=== PATIENT | female | born 1980 ===

== ENCOUNTER 2016-10-05 18:48 | Inpatient (IN) | payer OTHER ==
[~2016-10-05] VITALS: Ht 162.6 cm; Wt 59.4 kg
[2016-10-06] MEDS ORDERED: Alum-Mag Hydrox-Simeth 30 mL Suspension PO PRN (09:40)
[2016-10-06] MEDS ORDERED: Benzocaine-Menthol Lozenge 2/Pkg PO PRN (09:40)
[2016-10-06] MEDS ORDERED: ARIP400S2 IM (11:13)
[2016-10-06] MEDS ORDERED: DEP500A PO (11:26)
[2016-10-06] MEDS ORDERED: ATOM10CA PO (11:26)
[2016-10-06] MEDS ORDERED: OLAN10TA3 PO (11:26)
[2016-10-06] MEDS ORDERED: LIT300 PO (11:26)
[2016-10-06] MEDS: Trimethoprim-Sulfa 160 mg-800 mg Tablet PO SCH ×2 (11:40→20:30)
[2016-10-06] MEDS ORDERED: ARIPiprazole 10 mg Tablet PO ONE (13:54)
[2016-10-06] MEDS: ARIPiprazole 10 mg Tablet PO SCH (13:55)
--- NOTE | 2016-10-06 15:00 | NUR ---
Nursing Admission Note: Patient arrived on the unit at 0830 escorted by security and EMS. KASANDRA'd on a 72 hour hold in [facility] Monday evening the 04 of October at 2155. Requested to go straight to her room. Answered a few questions and napped for a bit prior to taking a shower and changing into clean clothes. States "I really could use a mental health evaluation." Per patient she has been on a meth run since learning she had her rights as a parent of her 2 children rescinded by the court last March. Ate well at lunch. Noted to be talking to herself at times. Will monitor mood and behavior.
--- NOTE | 2016-10-06 19:22 | NUR ---
Observations 0900 - 0 Pt affect and mood was flat, isolative and mostly keeps to herself. Pt was in her room and in bed most of the shift. Pt was pleasant, polite and cooperative when approached. Pt maintained behavior throughout the shift. Pt speech and eye contact was poor. Pt was offered snack but she declined. Pt did not attend community meeting but declined going to groups and unit activities. Pt was asked if she wanted to go out on patio to get some fresh air but she declined. Pt was offered breakfast and dinner but she refused to come out of her room to eat. Pt attended lunch in D.[facility] and ate approximately 75%. Pt was observed every 15 minutes through the shift as ordered.
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
--- NOTE | 2016-10-07 04:26 | NUR ---
Nursing Noc Pt isolative to room, not willing to get up for snack or evening medications. Noted to be first asleep at 1945 and has remained asleep throughout the night. Continuing to monitor with Q15 minute safety checks as ordered. Monitoring mood behavior and emotional state. CP
[2016-10-07] MEDS: ARIPiprazole 10 mg Tablet PO SCH (08:11)
[2016-10-07] MEDS: Trimethoprim-Sulfa 160 mg-800 mg Tablet PO SCH ×2 (08:12→20:27)
[2016-10-07] MEDS: LORazepam 1 mg Tablet PO PRN ×2 (09:57→15:04)
--- NOTE | 2016-10-07 13:13 | NUR ---
Nursing Dayshift: S: "I feel I just need to get to the point where I can start connecting the dots." O: Patient verbalizing understanding of current situation and need for help. Has been up for meals with a good appetite. Out on the patio with peers. Attending group activities. Pleasant on approach. Anxiety a 09/17. Depression n 11/17. "Some earlier" SI w/o plan. Denies HI and hallucinations. A: Pleasant/cooperative. More social today. Future focused. P: CPOC. Monitor mood and behavior.
[2016-10-07 14:04] VITALS: BP 103/71; PULSE 96; RESP 16
--- NOTE | 2016-10-07 16:31 | NUR ---
[facility] Day Shift Pt maintained behavioral control throughout the shift. Pt affect appears mostly flat, occasionally bright/excited. Pt spends most of the shift resting in her room, but is mildly active on the unit sporadically throughout the shift. Pt is appropriate with staff and peers when active on the unit. Pt appears to actively attend to internal stimuli throughout the shift, frequently talking to herself. Pt spends most of the shift reading/resting in her room or engaging in unit activities. Pt did not attend community meeting, but has attended group activities throughout the shift. Pt has attended all meals at this time and has eaten approx 100% of all meals.
--- NOTE | 2016-10-07 17:08 | NUR ---
spiritual care: pt request lengthy conversational visit in conf room. pt animated, clear and mostly linear. Shared spiritual distress of last 2 years raza and related whirlwind of emotions and overwhelm. Pt shared her struggles with spiritual forces that confuse her (making friends and family seem threatening) and she described her own attempts to manage them. Pt shared that criminal/misdemeanor history is related to her struggles with mental health and complicate her life considerably. Pt described her desire and attempts to recommit to God and requested prayer support and a listening ear as she sifted through her complex mormonism past. Pt literate with sadiq/conversion language and hopeful about resources within mental health care. pt participated in Prayer and was agreeable to rec. written devotion on psalm 46.
--- NOTE | 2016-10-07 18:15 | PCM.PNPSY ---
Subjective Date of Service Oct 07, 2016 Subjective The patient reports that she "feels a little down and depressed" and because of this would like the restart of amphetamines. We discussed that this would be counter therapeutic as she is still psychotic and experiencing auditory hallucinations. The patient then adds that she is "oversleeping and [she has] an addictive behavior in the past." She reports having been in outpatient drug and alcohol treatment 3 times and believes she needs inpatient treatment. She denies medication side effects. She states that she would like to get on long- acting aripiprazole and have routine medication to help calm her mood until the medications have stabilized. We discussed using clonazepam and the patient was agreeable. She was also aware that this would need to be discontinued prior to discharge. We discussed referring the patient to [facility] services or [facility] for drug and alcohol assessment the patient requested a gluten-free vegetarian diet. Sleep: 10 hours Appetite: "A little better" Suicidal and homicidal ideation: Helpless and frustrated, denies homicidality. Auditory hallucinations: "Better control " Visual hallucinations: Denies Other Psychotic Symptoms: Disorganized rapid pressured speech Anxiety: Occasional anxiety feeling "up and down" Depression: Her mood was "down this morning." Current Medications Current Medications Aripiprazole 20 mg DAILY PO Last administered on 10/07/16 08:11; Admin Dose 20 MG; Start 10/06/16 at 13:50 Clonazepam 1 mg BID PO Last administered on 10/07/16 16:59; Admin Dose 1 MG; Start 10/07/16 at 16:35 [place] Carbonate 450 mg BID PO Last administered on 10/07/16 08:11; Admin Dose 450 MG; Start 10/06/16 at 13:50 Lorazepam 1 mg Q4 PRN PO Last administered on 10/07/16 15:04; Admin Dose 1 MG ; Start 10/06/16 at 09:45; Stop 10/07/16 at 16:40; Status DC Trimethoprim/ Sulfamethoxazole 1 tablet BID PO Last administered on 10/07/16 08 :12; Admin Dose 1 TABLET; Start 10/06/16 at 09:41; Stop 10/08/16 at 20:31 Mental Status Exam Vital Signs Vital Signs Date Time Temp Pulse Resp B/P Pulse Ox O2 Delivery O2 Flow Rate FiO2 10/07/16 14:04 36.2 96 16 103/71 Appearance: Neat/well groomed Attitude: Cooperative Behavior: Distractible Affect: Labile Mood: Expansive, Anxious Thought Process/Associations: Tangential, Circumstantial Speech Production: Abundant Speech Rate: Pressured Speech Articulation: Normal Thought Content: Somatic preoccupation, Perseveration Danger to Self/Suicidal Ideati: Passive Danger to Others: None Hallucinations: Auditory (Endorses), Visual (Denies) Consciousness: Alert Orientation: Person, Place, Date, Situation Memory: Grossly Intact Estimate Intellectual Function: Average Basis for IQ estimate: Awareness current events, Word use/vocabulary, Educational history Attention/Concentration & Cogn: Impaired Insight: Limited Judgement: Limited Mental Health Plan The patient is a 36-year-old female with a history of multiple inpatient hospitalizations and a history of schizophrenia or schizoaffective disorder, although her report of elevated mood would suggest schizoaffective disorder bipolar type, and her medication history would be appropriate for this diagnosis. The patient reported her best response to aripiprazole and lithium, and is willing to restart these medications. She is not willing to restart Depakote. She did request to restart Strattera and it was discussed with the patient that we should wait until she is stabilized on her medications before considering a stimulant. [place] AXIS I: 1. Schizoaffective disorder bipolar type versus schizophrenia chronic paranoid type. 2. Methamphetamine use disorder. 3. Alcohol use disorder. AXIS II: Deferred. AXIS III: None acute. AXIS IV: Moderate to severe. AXIS V: Global Assessment of Functioning 30 Treatments 1. The patient is admitted to the inpatient unit and we provided a safe and secure environment. 2. The patient is denying current active suicidality and is not in need of a one-to-one at this time. 3. The patient is encouraged to participate with group and milieu activities. 4. The patient will be seen by the treatment team on a daily basis to assess symptoms, side effects and response to treatment. 5. The patient will be restarted on aripiprazole 20 mg daily. Will start Abilify Maintena when more stable. 6. The patient will be restarted on lithium 450 mg Eskalith twice daily and combined at either morning or bedtime. 7. Trimethoprim sulfa for presumed urinary tract infection. 8. Vegetarian, gluten free diet. 8. Clonazepam 1 mg twice daily with 1 mg by mouth every 6 hours as needed for anxiety. 9. Anticipated length of stay is 10-14 days, possibly longer. Clifford Carlos MD Oct 07, 2016 18:15
--- NOTE | 2016-10-08 03:14 | NUR ---
Nursing Noc Pt noted to be talking to internal stimuli in a normal voice without obvious agitation. Responds to staff appropriately. Noted to isolated this shift to room. Taking medications as directed. Continuing to monitor mood behavior and emotional state with Q15 minute safety checks. CP
[2016-10-08] MEDS: Trimethoprim-Sulfa 160 mg-800 mg Tablet PO SCH ×2 (08:08→20:18)
[2016-10-08] MEDS: ARIPiprazole 10 mg Tablet PO SCH (08:09)
[2016-10-08 11:00] VITALS: BP 109/69; PULSE 82; RESP 18
--- NOTE | 2016-10-08 14:48 | NUR ---
Lead Assembler/Counselor S:"I feel a lot more like myself." O: Patient denies any SI or HI, little depression and rates her anxiety at 1-2. A: Patient seemed to be doing much better with letting the voices control her. She stated that she was able to control them versus them controlling her. She kelsy more like herself, and said she was doing good and that she slept well. She stated she did not want to return to [facility] and preferred to see her PCP for medication management, while finding another counselor. [facility] [place], [facility]. She stated she will return to her parent's house until she can get into an in treatment center. P: Follow care plan and coordinate with outpatient providers. Addendum: 10/08/16 at 1504 by LANA CABALLERO [facility] Patient attended the group session and participated in all discussions.
--- NOTE | 2016-10-08 15:42 | PCM.PNPSY ---
Subjective Date of Service Oct 08, 2016 Subjective The patient reports that she is doing "good today" and is feeling more organized and able to focus but still feeling distracted. She reported that she had previously been interested in the [facility] [place]. The patient reported some drowsiness this morning and we discussed moving Eskalith all to bedtime and the patient was agreeable. She denied other side effects. She appeared to be getting along well with peers and staff and reported that the auditory hallucinations were significantly improved. Sleep: 8 hours hours Appetite: "Better" Suicidal and homicidal ideation: Denies Auditory hallucinations: "Pretty good, under control " Visual hallucinations: Denies Other Psychotic Symptoms: Somewhat disorganized Anxiety: -05/20 Depression: "I feel my mood is down." Patient reports likes feeling up Current Medications Current Medications Cholecalciferol 1,000 unit DAILY PO Last administered on 10/08/16 08:09; Admin Dose 1,000 UNIT; Start 10/08/16 at 08:30 Clonazepam 1 mg BID PO Last administered on 10/08/16 08:09; Admin Dose 1 MG; Start 10/07/16 at 16:35 Mental Status Exam Appearance: Neat/well groomed Attitude: Pleasant, Cooperative Behavior: Distractible Affect: Well Modulated/Appropriate (fairly) Mood: Expansive, Anxious Thought Process/Associations: Tangential, Circumstantial Speech Production: Abundant Speech Rate: Normal, Pressured (mildly) Speech Articulation: Normal Thought Content: Somatic preoccupation, Perseveration Danger to Self/Suicidal Ideati: None Danger to Others: None Hallucinations: Auditory (Endorses), Visual (Denies) Consciousness: Alert Orientation: Person, Place, Date, Situation Memory: Grossly Intact Estimate Intellectual Function: Average Basis for IQ estimate: Awareness current events, Word use/vocabulary, Educational history Attention/Concentration & Cogn: Impaired Insight: Limited Judgement: Limited Mental Health Plan The patient is a 36-year-old female with a history of multiple inpatient hospitalizations and a history of schizophrenia or schizoaffective disorder, although her report of elevated mood would suggest schizoaffective disorder bipolar type, and her medication history would be appropriate for this diagnosis. The patient reported her best response to aripiprazole and lithium, and is willing to restart these medications. She is not willing to restart Depakote. She did request to restart Strattera and it was discussed with the patient that we should wait until she is stabilized on her medications before considering a stimulant. The patient appears more organized today and reports her auditory hallucinations had improved. She is experiencing some daytime sedation which may be due to lithium which could easily be prescribed all at bedtime. [place] AXIS I: 1. Schizoaffective disorder bipolar type versus schizophrenia chronic paranoid type. 2. Methamphetamine use disorder. 3. Alcohol use disorder. AXIS II: Deferred. AXIS III: None acute. AXIS IV: Moderate to severe. AXIS V: Global Assessment of Functioning 35 Treatments 1. The patient is admitted to the inpatient unit and we provided a safe and secure environment. 2. The patient is denying current active suicidality and is not in need of a one-to-one at this time. 3. The patient is encouraged to participate with group and milieu activities. 4. The patient will be seen by the treatment team on a daily basis to assess symptoms, side effects and response to treatment. 5. The patient will be restarted on aripiprazole 20 mg daily. Will start Abilify Maintena when more stable. 6. Change Eskalith to 900 mg at bedtime. 7. Trimethoprim sulfa for presumed urinary tract infection. 8. Vegetarian, gluten free diet. 8. Clonazepam 1 mg twice daily with 1 mg by mouth every 6 hours as needed for anxiety. 9. Anticipated length of stay is 10-14 days, possibly longer. Clifford Carlos MD Oct 08, 2016 15:42
--- NOTE | 2016-10-08 18:14 | NUR ---
Observations 0900 - 0 Pt affect and mood was labile, scattered, childlike and needy . Pt was out of her room most of the shift. Pt was pleasant, polite and cooperative when approached. Pt maintained behavior throughout the shift. Pt speech and eye contact was better today. Pt was offered snack but she declined. Pt attended community meeting, groups and unit activities. Pt was offered breakfast and dinner but she refused to come out of her room to eat. Pt attended lunch in D.R and ate approximately 75%. Pt was observed every 15 minutes through the shift as ordered.
--- NOTE | 2016-10-08 19:19 | NUR ---
[id number]. nurs. S/O: Pt has reported a decrease in intensity and frequency of AHs. Pt reports that the AHs are not derogatory. Pt able to participate in some of grp and has been out in wking on some drawing and writing has been asking for reading material that is educational rather than novels. Pt states that she can focus on projects and wants to stay busy ,spend time on patio and play guitar colour write and read not interacting with others out in did eat lunch not dinner or breakfast. P:CNCP
--- NOTE | 2016-10-09 04:49 | NUR ---
Nursing Noc Pt reporting improvement of auditory hallucinations. noted to be out in common area participating in groups and self entertaining with crafts and music. Continuing to monitor mood behavior and emotional state. Q15 minute safety checks throughout the shift as directed. CP.
[2016-10-09] MEDS: ARIPiprazole 10 mg Tablet PO SCH (08:33)
--- NOTE | 2016-10-09 11:44 | NUR ---
[id number]. nurs. S: " Feel better, not so down, so lethargic, I got some sleep, I needed that... O: Pt reporting improved mood, and AHs not troublesome, while noted to continue to talk loudly in response to internal stim while in bedrm, shower and walking in [place]. Pt conversing with new young female trying to make her feel comfortable on unit. Pt stating that she wanted to talk to Dr corona. her medication plan on discharge and appeared to be asking thoughtful questions. Pt talking about her goals re. getting into recovery, and obtaining educ in law and talked of getting her children back. Pt wearing hair in towel turban stating liked to dry her hair that way and felt comfortable with the feeling of this head cover. Pt with bright affect and appearing comfortable with unit activites and grps. A: Pt continues to respond actively to AHs but is able to stay focused on topic when interacting and conversing with staff, activities help distract pt from internal stim. pt indicating that she wants to stay on meds after discharge. P:CNCP Addendum: 10/09/16 at 1935 by ASHLEY RODRIGUEZ RN Pt given 1 mg of klonapin at 1520 for 6/10 anxiety re some perceived aggressive behaviour of peer and reported helpful.
[2016-10-09 16:08] VITALS: BP 108/59; PULSE 70; RESP 19
--- NOTE | 2016-10-09 18:30 | NUR ---
[facility] Day Shift Pt affect and behavior appear mostly unchanged from previous shifts. Pt maintained behavioral control throughout the shift. Pt affect appears mostly flat, occasionally bright/excited. Pt spends most of the shift resting in her room, but is mildly active on the unit sporadically throughout the shift. Pt is appropriate with staff and peers when active on the unit. Pt appears to actively attend to internal stimuli throughout the shift, frequently talking to herself (though to a lesser extent than noted on previous shifts). Pt spends most of the shift reading/resting in her room or engaging in unit activities. Pt attended community meeting and has attended group activities throughout the shift. Pt has attended all meals at this time and has eaten approx 100% of all meals.
--- NOTE | 2016-10-09 22:40 | PCM.PNPSY ---
Subjective Date of Service Oct 09, 2016 Subjective The patient reports that she is doing "good, pretty good so far today." The patient reported feeling annoyed that the voices were telling her to do different things in her art and making her hand do things while drawing. Patient again requested Strattera and Abilify Maintena, but would like to have additional oral to make total dose of 20mg equivalent per day. She denied other side effects. Sleep: 7 hours hours Appetite: "Good" Suicidal and homicidal ideation: Denies Auditory hallucinations: "coming back some " Visual hallucinations: Denies Other Psychotic Symptoms: Somewhat disorganized, 0/10 racing thoughts. Anxiety: 06/17 Depression: 05/20 Current Medications Current Medications Cholecalciferol 1,000 unit DAILY PO Last administered on 10/09/16 08:32; Admin Dose 1,000 UNIT; Start 10/08/16 at 08:30 [place] Carbonate 900 mg HS PO Last administered on 10/09/16 19:58; Admin Dose 900 MG; Start 10/09/16 at 21:00 Mental Status Exam Vital Signs Vital Signs Date Time Temp Pulse Resp B/P Pulse Ox O2 Delivery O2 Flow Rate FiO2 10/09/16 16:08 36.7 70 19 108/59 Appearance: Neat/well groomed Attitude: Pleasant, Cooperative Behavior: Distractible Affect: Well Modulated/Appropriate (fairly) Mood: Expansive, Anxious Thought Process/Associations: Tangential, Circumstantial Speech Production: Abundant Speech Rate: Pressured (mildly) Speech Articulation: Normal Thought Content: Somatic preoccupation, Perseveration Danger to Self/Suicidal Ideati: None Danger to Others: None Hallucinations: Auditory (Endorses), Visual (Denies) Consciousness: Alert Orientation: Person, Place, Date, Situation Memory: Grossly Intact Estimate Intellectual Function: Average Basis for IQ estimate: Awareness current events, Word use/vocabulary, Educational history Attention/Concentration & Cogn: Impaired Insight: Good Judgement: Limited Mental Health Plan The patient is a 36-year-old female with a history of multiple inpatient hospitalizations and a history of schizophrenia or schizoaffective disorder, although her report of elevated mood would suggest schizoaffective disorder bipolar type, and her medication history would be appropriate for this diagnosis. The patient reported her best response to aripiprazole and lithium, and is willing to restart these medications. She is not willing to restart Depakote. She did request to restart Strattera and it was discussed with the patient that we should wait until she is stabilized on her medications before considering a stimulant. The patient appears more organized today and reports her auditory hallucinations have somewhat increased and is asking about getting an injection to help with adherence. [place] AXIS I: 1. Schizoaffective disorder bipolar type versus schizophrenia chronic paranoid type. 2. Methamphetamine use disorder. 3. Alcohol use disorder. AXIS II: Deferred. AXIS III: None acute. AXIS IV: Moderate to severe. AXIS V: Global Assessment of Functioning 35 Treatments 1. The patient is admitted to the inpatient unit and we provided a safe and secure environment. 2. The patient is denying current active suicidality and is not in need of a one-to-one at this time. 3. The patient is encouraged to participate with group and milieu activities. 4. The patient will be seen by the treatment team on a daily basis to assess symptoms, side effects and response to treatment. 5. The patient will be restarted on aripiprazole 20 mg daily. 6. Change Eskalith to 900 mg at bedtime. 7. Abilify Maintena 400mg IM in am. 8. Vegetarian, gluten free diet. 8. Clonazepam 1 mg twice daily with 1 mg by mouth every 6 hours as needed for anxiety. 9. Anticipated length of stay is 10-14 days, possibly longer. Clifford Carlos MD Oct 09, 2016 22:40
--- NOTE | 2016-10-10 05:28 | NUR ---
Nursing Noc Pt was visible and active out in the milieu. She participated in evening group and snack. She made appropriate requests and was cooperative with care. Took scheduled medication. No c/o voices this evening. Adequate sleep through night with brief awakening x 1. Total sleep over 6 hours.
[2016-10-10] MEDS: ARIPiprazole 10 mg Tablet PO SCH (08:23)
[2016-10-10] MEDS ORDERED: ARIPiprazole ER 400 mg Inj IM ONE (09:00)
--- NOTE | 2016-10-10 10:37 | NUR ---
NUTRITION CONSULT Spoke at length with pt re gluten free/vegetarian options. Menu completed with pt in cafeteria. Meal preferences given to dietetic assistant.
--- NOTE | 2016-10-10 11:10 | NUR ---
Conflict with another patient Talking with another patient when Magalie interrupted the conversation. the other patient took and aggressive stance and raised voice at patient. After interaction, Magalie reported increased anxiety and asked for medication to help with it. Magalie asked if she could call 911 if she feel threatened by this other patient. I advised to to notified the staff if she feels threatened and recommended that she limit her interaction with this other patient. Magalie agreed with plan. continue to monitor situation and interactions with Magalie and this other patient.
--- NOTE | 2016-10-10 11:58 | NUR ---
Increased anxiety patient reporting increased anxiety this am. she stated that she's upset that the Clonazepam 1mg BID was discontinued and that she only has the Q6hr PRN available. she is requesting that she have both the scheduled and PRN available.
--- NOTE | 2016-10-10 14:18 | NUR ---
Lilly and Clonazepam Patient requesting that she receive her Ability Maintena injection. the Medication is still listed as pending. I called and discussed the issue with pharmacy. I was told that the medication is non-formulary and awaiting decision from clinical Coordinator/Admin. The cost of the medication is $4500.00. the pharmacist informed me that because of it's cost and that it's non-formulary that other alternatives may need to be evaluated and that he's doesn't know when it will be reviewed. Magalie is also upset about her scheduled Clonazepam was DC'd and the her PRN dose is the only one available. Dr Carlos was notified about the Ability Maintena pending review and patient's concern about her Clonazepam dosing. Dr Main reports that it's okay to wait until the pending review is done and will discuss Clonazepam changes with patient.
--- NOTE | 2016-10-10 16:23 | NUR ---
Cloth Finishing Range Back Tender/Counselor S:"The voices are trying to make me feel bad." O: Patient denied any SI and HI, and stated that her auditory hallucinations are trying to make her feel bad. She had no anxiety and only "a little sad" when asked about depression. A: Patient has been very tangential and demanding of staff. She was very talkative during the last part of group, and has been in the group room working on her art project. P: Follow care plan and coordinate with outpatient providers.
--- NOTE | 2016-10-10 16:55 | NUR ---
Obs Dayshift Pt is demanding, argumentative, labile, restless. Pt is often at the RN station wanting different things from staff, she has been asked to try and group her needs so she is coming up less. Pt is upset with staff and attempts to staff split. Pt is wanting to change her diet again and have the pomology teacher come back again to go over snack times and items. Pt is paranoid about some of her peers, and asked staff to keep them at least 20 feet away from her. Pt did attend group. Pt is tangential, irritable. Ok ADL's, Good meals
--- NOTE | 2016-10-10 18:16 | NUR ---
Nursing Days Patient has been c/o increased anxiety throughout the day after her interaction with another patient this morning (see previous note). She requested an increase/change in her Clonazepam dosing after her scheduled BID dose was discontinued yesterday. Patient has wanted to paint and "do art all day today", but hasn't been satisfied with the art material provided. encouraged to develop a plan for discharge, continue to monitor.
--- NOTE | 2016-10-10 21:33 | PCM.PNPSY ---
Subjective Date of Service Oct 10, 2016 Subjective The patient reports that she was a little anxious this morning and felt a little scattered. The patient reported feeling upset with the voices as they are making her feel bad. They are not telling her to harm herself or others, but comment on her art and activities in a demeaning way. Patient again requested Strattera and Abilify Maintena, but would like to have additional oral to make total dose of 20mg equivalent per day. As this is non-formulary and may not be covered, we discussed Abilify Aristada and will need to determine coverage. She denied other side effects. Sleep: 6 hours hours Appetite: "Great" Suicidal and homicidal ideation: Denies Auditory hallucinations: "Making me feel bad " Visual hallucinations: Denies Other Psychotic Symptoms: Somewhat disorganized, 0/10 racing thoughts. Anxiety: "fine" Depression: "a little sad" Current Medications Current Medications Clonazepam 1 mg HS PO Last administered on 10/10/16 21:07; Admin Dose 1 MG; Start 10/10/16 at 21:00 [place] Carbonate 900 mg HS PO Last administered on 10/10/16 21:04; Admin Dose 900 MG; Start 10/09/16 at 21:00 Mental Status Exam Appearance: Neat/well groomed Attitude: Pleasant, Cooperative Behavior: Distractible Affect: Well Modulated/Appropriate (fairly) Mood: Expansive, Anxious Thought Process/Associations: Tangential, Circumstantial Speech Production: Abundant Speech Rate: Pressured (mildly) Speech Articulation: Normal Thought Content: Somatic preoccupation, Perseveration Danger to Self/Suicidal Ideati: None Danger to Others: None Hallucinations: Auditory (Endorses), Visual (Denies) Consciousness: Alert Orientation: Person, Place, Date, Situation Memory: Grossly Intact Estimate Intellectual Function: Average Basis for IQ estimate: Awareness current events, Word use/vocabulary, Educational history Attention/Concentration & Cogn: Impaired Insight: Good Judgement: Limited Mental Health Plan The patient is a 36-year-old female with a history of multiple inpatient hospitalizations and a history of schizophrenia or schizoaffective disorder, although her report of elevated mood would suggest schizoaffective disorder bipolar type, and her medication history would be appropriate for this diagnosis. The patient reported her best response to aripiprazole and lithium, and is willing to restart these medications. She is not willing to restart Depakote. She did request to restart Strattera and it was discussed with the patient that we should wait until she is stabilized on her medications before considering a stimulant. The patient appears more organized today and reports her auditory hallucinations are stabilizing and is asking about getting an injection to help with adherence. Patient also wanting Strattera, discussed waiting until more stable. [place] AXIS I: 1. Schizoaffective disorder bipolar type versus schizophrenia chronic paranoid type. 2. Methamphetamine use disorder. 3. Alcohol use disorder. AXIS II: Deferred. AXIS III: None acute. AXIS IV: Moderate to severe. AXIS V: Global Assessment of Functioning 35 Treatments 1. The patient is admitted to the inpatient unit and we provided a safe and secure environment. 2. The patient is denying current active suicidality and is not in need of a one-to-one at this time. 3. The patient is encouraged to participate with group and milieu activities. 4. The patient will be seen by the treatment team on a daily basis to assess symptoms, side effects and response to treatment. 5. The patient will be restarted on aripiprazole 20 mg daily. 6. Change Eskalith to 900 mg at bedtime. 7. Abilify Maintena 400mg IM under evaluation, consider Abilify Aristada 882mg to avoid adding oral aripiprazole 8. Vegetarian, gluten free diet. 8. Clonazepam 0.5 mg daily and 1mg nightly with 1 mg by mouth every 6 hours as needed for anxiety. 9. Anticipated length of stay is 10-14 days, possibly longer. Clifford Carlos MD Oct 10, 2016 21:33
--- NOTE | 2016-10-10 22:50 | NUR ---
EVENING NURSING NOTE Patient has presented as anxious and irritable. Asking for additional clonazepam. Somewhat intrusive at times with other patients and staff.
--- NOTE | 2016-10-11 06:12 | NUR ---
Nursing Note Jalousies Installer 11pm to 7am Pt awake at start of shift, agitated and upset at peer for violating her personal space. Peer redirected and pt. encouraged to come to staff if incident reoccurs. Pt speech is pressured and thoughts perseverative. Pt requested a sleep aid. Order obtained from Dr. Carlos for Ambien 5mg with repeat dose. Ambien administered at 2337 and 0031 with limited effect. Monitored pt. with q 15 minute face checks for safety location and accountability.
[2016-10-11] MEDS: ARIPiprazole 10 mg Tablet PO SCH (08:37)
[2016-10-11 11:00] VITALS: BP 108/73; PULSE 63; RESP 19
--- NOTE | 2016-10-11 14:23 | NUR ---
Private Branch Exchange Operator/Counselor S: "I'm having a hard time with one of the other patients trying to get into my room." O: Patient did not express any SI or HI, no visual hallucinations, but some auditory hallucinations. Her anxiety has been up and down during the day, and she rated her depression as a 0. A: Patient stated that she didn't sleep well and that another patient was trying to get into her room. She stated that all she really wants to do right now is work on her art project, and expressed frustration with not being allowed to utilize some of the art supplies at her leisure. It was explained to her that staff needed to be present, and it wasn't always possible to spare a staff member to supervise just a single person. She was more understanding after, and has been out in the milieu interacting with other patients. P:Follow care plan and coordinate with outpatient providers.
--- NOTE | 2016-10-11 15:21 | NUR ---
Tearful Pt. was tearful when she talked about her children. She reported they were in good hands at the moment. She would like to see them. She busied herself with coloring to distract herself. Pt. received PRN Clonazepam 1 mg PO around noon for increased anxiety. She denied S.I when asked.
[2016-10-11] MEDS: buPROPion XL 150 mg ER24 Tablet PO SCH (16:53)
--- NOTE | 2016-10-11 17:40 | PCM.PNPSY ---
Subjective Date of Service Oct 11, 2016 Subjective The patient reported that Wellbutrin had improved her attention in the past and she would like to restart this medication as she has had ongoing anxiety. She reports little depression. She reports that the zolpidem was not helpful with insomnia and that typically Benadryl is more helpful. She denies side effects to medications or medical issues. Sleep: 3.5 hours Appetite: Good Suicidal and homicidal ideation: Denies Auditory hallucinations: The patient reports that she is trying not to interact with him Visual hallucinations: Denies Other Psychotic Symptoms: Thought disorganization and impulsivity improving Anxiety: "Comes and goes" Depression: "A little" Current Medications Current Medications Bupropion HCl 150 mg DAILY PO Last administered on 10/11/16 16:53; Admin Dose 150 MG; Start 10/11/16 at 15:20 Clonazepam 0.5 mg DAILY PO Last administered on 10/11/16 08:37; Admin Dose 0.5 MG; Start 10/11/16 at 08:30 Clonazepam 1 mg HS PO Last administered on 10/10/16 22:00; Admin Dose 1 MG; Start 10/10/16 at 21:00 [place] Carbonate 900 mg HS PO Last administered on 10/10/16 21:04; Admin Dose 900 MG; Start 10/09/16 at 21:00 Zolpidem Tartrate 5 mg Q1H PRN PO Last administered on 10/11/16 00:31; Admin Dose 5 MG; Start 10/10/16 at 23:40; Stop 10/11/16 at 08:30; Status DC Zolpidem Tartrate 5 mg STK-MED ONCE .ROUTE Last administered on 10/10/16 23:27; Admin Dose 5 MG; Start 10/10/16 at 23:19; Stop 10/10/16 at 23:20; Status DC Mental Status Exam Vital Signs Vital Signs Date Time Temp Pulse Resp B/P Pulse Ox O2 Delivery O2 Flow Rate FiO2 10/11/16 11:00 36.3 63 19 108/73 Appearance: Neat/well groomed Attitude: Pleasant, Cooperative Behavior: Distractible Affect: Well Modulated/Appropriate (fairly) Mood: Expansive, Anxious Thought Process/Associations: Tangential, Circumstantial Speech Production: Abundant Speech Rate: Pressured (mildly) Speech Articulation: Normal Thought Content: Somatic preoccupation, Perseveration Danger to Self/Suicidal Ideati: None Danger to Others: None Hallucinations: Auditory (Endorses), Visual (Denies) Consciousness: Alert Orientation: Person, Place, Date, Situation Memory: Grossly Intact Estimate Intellectual Function: Average Basis for IQ estimate: Awareness current events, Word use/vocabulary, Educational history Attention/Concentration & Cogn: Impaired Insight: Good Judgement: Limited Mental Health Plan The patient is a 36-year-old female with a history of multiple inpatient hospitalizations and a history of schizophrenia or schizoaffective disorder, although her report of elevated mood would suggest schizoaffective disorder bipolar type, and her medication history would be appropriate for this diagnosis. The patient reported her best response to aripiprazole and lithium, and is willing to restart these medications. She is not willing to restart Depakote. She did request to restart Strattera and it was discussed with the patient that we should wait until she is stabilized on her medications before considering a stimulant. The patient appears more organized today and reports her auditory hallucinations are stabilizing and is asking about getting an injection to help with adherence. Patient also wanting Strattera, discussed waiting until more stable. Patient agreeable to starting Wellbutrin for anxiety and attention/ focus. [place] AXIS I: 1. Schizoaffective disorder bipolar type versus schizophrenia chronic paranoid type. 2. Methamphetamine use disorder. 3. Alcohol use disorder. AXIS II: Deferred. AXIS III: None acute. AXIS IV: Moderate to severe. AXIS V: Global Assessment of Functioning 35 Treatments 1. The patient is admitted to the inpatient unit and we provided a safe and secure environment. 2. The patient is denying current active suicidality and is not in need of a one-to-one at this time. 3. The patient is encouraged to participate with group and milieu activities. 4. The patient will be seen by the treatment team on a daily basis to assess symptoms, side effects and response to treatment. 5. The patient will be restarted on aripiprazole 20 mg daily. 6. Diphenhydramine 25 mg to 50 mg by mouth nightly when necessary insomnia 7. Abilify Maintena 400mg IM under evaluation, consider Abilify Aristada 882mg to avoid adding oral aripiprazole 8. Wellbutrin XL 150 mg daily titrating to 300 mg daily as tolerated. 9. Clonazepam 0.5 mg daily and 1mg nightly with 1 mg by mouth every 6 hours as needed for anxiety. 10. Anticipated length of stay is 10-14 days, possibly longer. Clifford Carlos MD Oct 11, 2016 17:40
--- NOTE | 2016-10-11 18:57 | NUR ---
Obs Dayshift Pt has been labile, restless, responding to IS, inappropriate laughter. Pt is very focused on her need for specific art supplies, gets upset when told she can not have goldie, hot glue guns, paint, etc. Pt has scattered thought process, up to the RN station often wanting different items every few min. Not able to group her requests. Pt states that staff are rude and attack her verbally, quite demanding and needy. Attempts staff splitting, tearful, laughing, sarcastic, sad. Ok ADL's, Good meals
[2016-10-11] MEDS: diphenhydrAMINE 25 mg Capsule PO PRN (21:01)
--- NOTE | 2016-10-11 22:22 | NUR ---
Nursing Notes [id number] S: "I am getting very upset, because I can't contact anyone in my family". "I am trying to get these art projects done for my family and am feeling pretty stressed out about them right now". O: Patient working on art projects in rec. room. Patient requesting medications or snacks several times for anxiety. Patient rated anxiety as 6/10 or depression 4/10. A: Patient continues, to be anxious, restless, making multiple requests, and has excuses why the normal "won't work" for her. P: Monitor for response to treatment. Q 15 minute checks for safety. Follow plan of care. Addendum: 10/11/16 at 2240 by FLOR COLE RN PRN's Klonopin 1 mg @ 2001 for anxiety 09/17. Not effective. Benadryl 25 mg for sleep @ 2100. Not effective.
--- NOTE | 2016-10-12 05:59 | NUR ---
Nursing Note Door Person 11pm to 7am Pt asleep at start of shift and slept throughout the night uninterrupted Monitored pt with 15 minute face checks for safety, location and accountability
[2016-10-12] MEDS: ARIPiprazole 10 mg Tablet PO SCH (08:24)
[2016-10-12] MEDS: buPROPion XL 150 mg ER24 Tablet PO SCH (08:25)
[2016-10-12 10:27] VITALS: BP 98/68; PULSE 71; RESP 16
--- NOTE | 2016-10-12 13:42 | NUR ---
Obs Dayshift Pt continues to respond to IS. Pt is constantly wanting to paint and do art, but complains about the supplies that we allow on the unit. Pt refused to go to structured group because it was against her methodist. Pt continues to be argumentative, irritable toward staff, engages w/ some peers and very irritable toward others. Pt is demanding, labile, delusional. Good ADL's, Good meals
--- NOTE | 2016-10-12 16:11 | NUR ---
Typing Bookkeeper/Counselor S: "I'm really having trouble focusing." O: Patient did not have any SI or HI, rated her anxiety and depression as up and down during the day, and she does hear voices but is able to control her voices and able to shut them out. A:Patient was on the patio coloring, and stated that she was having a really hard time focusing on the task. She was adamant about needing Strattera, and that it would help her attention issues, which would in turn take care of all her other issues. P: Follow care plan and coordinate with outpatient providers.
--- NOTE | 2016-10-12 17:08 | NUR ---
[id number]. nurs. S: "They (AHs) are better i can recognize that they are not me or God ..they disguise themselves then I get angry and want to kill myself" O: Pt reporting that she was having anxiety about trying to make colouring project for her child "I am a perfectionist and it is not going right because I don't have the right pens" Pt given klonapin 1 mg for her anxiety at that time. Pt reported that activites and talking to people help distract her from AHs. Pt noted to be slurring and appeared tired later in day and reported that she had poor focus because she needed addderall to help her concentrate and that was all that helped. Pt refused the mindfulness grp stating that it was against her sabianist and continued working on craft by self in DR noted to try and be helpful to peer. Pt denying other pxs and mood calm on unit. P:CNCP
--- NOTE | 2016-10-12 18:19 | PCM.PNPSY ---
Subjective Date of Service Oct 12, 2016 Subjective Patient continues to improved. She is able to maintain conversation, expressing her desire to restart a stimulant for ADHD as she feels she needs it to focus. States that she thinks the Wellbutrin is helping with her mood. She reports feeling a little "drunk" and would be willing to decrease her schedule clonazepam to just one mg in the PM. She continues to request long-acting anti-psychotic medications and is willing to participate in a Patient Assistance Program until she is able to obtain insurance in [place]. Sleep: 5.5hr Appetite: "fine" Suicidal and homicidal ideation: Denies Auditory hallucinations: "Under control". Continues to have conversations with voices when they are under control Visual hallucinations: Denies Other Psychotic Symptoms: Denies Anxiety: "at times" Depression: "at times" Current Medications Current Medications Bupropion HCl 150 mg DAILY PO Last administered on 10/12/16 08:25; Admin Dose 150 MG; Start 10/11/16 at 15:20 Clonazepam 0.5 mg DAILY PO Last administered on 10/12/16 08:24; Admin Dose 0.5 MG; Start 10/11/16 at 08:30 Clonazepam 1 mg HS PO Last administered on 10/11/16 21:01; Admin Dose 1 MG; Start 10/10/16 at 21:00 Diphenhydramine HCl 25 mg HS PRN PO Last administered on 10/11/16 21:01; Admin Dose 25 MG; Start 10/11/16 at 15:20 Zolpidem Tartrate 5 mg Q1H PRN PO Last administered on 10/11/16 00:31; Admin Dose 5 MG; Start 10/10/16 at 23:40; Stop 10/11/16 at 08:30; Status DC Zolpidem Tartrate 5 mg STK-MED ONCE .ROUTE Last administered on 10/10/16 23:27; Admin Dose 5 MG; Start 10/10/16 at 23:19; Stop 10/10/16 at 23:20; Status DC Mental Status Exam Vital Signs Vital Signs Date Time Temp Pulse Resp B/P Pulse Ox O2 Delivery O2 Flow Rate FiO2 10/12/16 10:27 36.2 71 16 98/68 Appearance: Neat/well groomed Attitude: Pleasant, Cooperative Behavior: Distractible Affect: Well Modulated/Appropriate (fairly) Mood: Expansive Thought Process/Associations: Tangential, Circumstantial Speech Production: Abundant Speech Rate: Pressured (improved) Speech Articulation: Normal Thought Content: Somatic preoccupation, Perseveration Danger to Self/Suicidal Ideati: None Danger to Others: None Hallucinations: Auditory (Endorses), Visual (Denies) Consciousness: Alert Orientation: Person, Place, Date, Situation Memory: Grossly Intact Estimate Intellectual Function: Average Basis for IQ estimate: Awareness current events, Word use/vocabulary, Educational history Attention/Concentration & Cogn: Impaired Insight: Good Judgement: Limited Mental Health Plan The patient is a 36-year-old female with a history of multiple inpatient hospitalizations and a history of schizophrenia or schizoaffective disorder, although her report of elevated mood would suggest schizoaffective disorder bipolar type, and her medication history would be appropriate for this diagnosis. The patient reported her best response to aripiprazole and lithium, and is willing to restart these medications. She is not willing to restart Depakote. She did request to restart Strattera and it was discussed with the patient that we should wait until she is stabilized on her medications before considering a stimulant. The patient appears more organized today and reports her auditory hallucinations are stabilized to baseline (conversant with voices). Asking about progress on getting an injection to help with adherence. Patient also wanting Strattera, discussed waiting until we have increased Wellbutrin to 300mg and stabilized. She understands this will take several days. [place] AXIS I: 1. Schizoaffective disorder bipolar type versus schizophrenia chronic paranoid type. 2. Methamphetamine use disorder. 3. Alcohol use disorder. AXIS II: Deferred. AXIS III: None acute. AXIS IV: Moderate to severe. AXIS V: Global Assessment of Functioning 35 Treatments 1. The patient is admitted to the inpatient unit and we provided a safe and secure environment. 2. The patient is denying current active suicidality and is not in need of a one-to-one at this time. 3. The patient is encouraged to participate with group and milieu activities. 4. The patient will be seen by the treatment team on a daily basis to assess symptoms, side effects and response to treatment. 5. The patient will be restarted on aripiprazole 20 mg daily. 6. Diphenhydramine 25 mg to 50 mg by mouth nightly when necessary insomnia 7. Abilify Maintena 400mg IM under evaluation, consider Abilify Aristada 882mg to avoid adding oral aripiprazole. Will help patient with the Patient Assistance Program for discharge. 8. Wellbutrin XL 150 mg daily titrating to 300 mg daily as tolerated. 9. Stop Clonazepam 0.5 mg daily. Continue 1mg nightly with 1 mg by mouth every 6 hours as needed for anxiety. 10. Consider Straterra once stable on Wellbutrin. 11. Anticipated length of stay is 10-14 days, possibly longer. Attending Statement The patient was seen and examined together with Dr. Gant on 10/12/16 and I agree with the history, exam and plan as outlined in the note above. Magalie Jason DO Oct 12, 2016 18:19 Clifford Carlos MD Oct 12, 2016 23:34
[2016-10-12] MEDS: diphenhydrAMINE 25 mg Capsule PO PRN (20:54)
--- NOTE | 2016-10-12 22:31 | NUR ---
Shift note [id number] Pt continues with bizarre behaviors and hearing voice in which she dances to block out the sound. The patient began to yell this HS, "I want a long sleeved shirt and I am homeless!" "You said the closet was for homeless people and I am homeless!." Pt has already received several items from the clothing donation closet. Pt wearing a jacket, long sleeved shirt and 2 pair of leggings at this time. Pt informed by staff that the clothing was limited to homeless pt and that she has had donation items already. Pt continued to voice concerns, but lowered her voice. Continue to monitor for mood changed, emotional well beings, and q15min checks for safety. Care ongoing.
--- NOTE | 2016-10-13 05:10 | NUR ---
nursing, nights, 11-7 s/o- has appeared to sleep after 2345 during q 15 minute assessments. a- no apparent distress. p- monitor behavior/emotional state, quality, times and amount of sleep, use and effect of medication. manuelito
[2016-10-13] MEDS: ARIPiprazole 10 mg Tablet PO SCH (07:30)
[2016-10-13] MEDS: buPROPion XL 150 mg ER24 Tablet PO SCH (07:30)
--- NOTE | 2016-10-13 13:58 | NUR ---
Retail Advertising Sales Manager/Counselor S:"I feel like I am finally able to get into a routine." O:Patient did not have any SI or HI, still has auditory hallucinations, but no visuals. She rated her depression at a 1, and her anxiety at a 2-3. she slept for 6.25 hours. A: Patient stated that she was having a hard time focusing on things, such as reading. She has been out in the milieu, and has spent some time coloring. She would like to be referred to a new psychiatrist upon discharge, and is going to look into dual diagnosis inpatient treatment. She plans to return to her parent's house. P:Follow care plan and coordinate with outpatient providers. Addendum: 10/13/16 at 1909 by [facility] Patient attended group and participated in all discussions.
[2016-10-13 17:17] VITALS: BP 103/75; PULSE 79; RESP 16
--- NOTE | 2016-10-13 17:37 | NUR ---
[id number]. nurs. S: "I lost it this morning I said too much..I was crying.. then I was trying to read my bible and they (AHs) were interfering because they don't like me having a relationship with God... O: Pt reporting that klonapin given at 0915 was helpful with her emotional anxiety and with helping her focus and with her AHs. "It keeps me calm and stops me losing it"... "I need it again now it really helps" . Pt given further dose of 1mg of klonapin at approx 1530. Pt also reporting grps helpful, pt spends time out on patio and colouring and interacting with some peers and reports all these activities help distract AHs . A: Pt noted to be significantly improved from her prev almost constant active response to AHs. P:CNCP
--- NOTE | 2016-10-13 18:52 | NUR ---
[facility] Day Shift Pt affect and behavior appear mostly unchanged from previous shifts. Pt maintained behavioral control throughout the shift. Pt affect appears mostly euthymic, occasionally flat/irritable. Pt is active on the unit throughout the shift and spends most of her time engaging with staff and peers and participating in unit activities. Pt is appropriate with staff and peers when active on the unit. Pt appears to actively attend to internal stimuli throughout the shift, occasionally talking to herself (though to a much lesser extent than noted on previous shifts). Pt spends most of the shift reading/resting in her room or engaging in unit activities. Pt attended community meeting and has attended group activities throughout the shift. Pt has attended all meals at this time and has eaten approx 100% of all meals.
[2016-10-13] MEDS: diphenhydrAMINE 25 mg Capsule PO PRN (21:17)
--- NOTE | 2016-10-13 22:23 | PCM.PNPSY ---
Subjective Date of Service Oct 13, 2016 Subjective The patient is reporting that she is "good" but noted a period earlier where she couldn't focus and was somewhat frustrated. She reports that the auditory hallucinations are under better control and are not as bothersome. She reports that her parents have difficulty visiting as her father is on dialysis but that they could pick her up on MWF. She reports that she will be staying with her parents on discharge. Discussed increasing bupropion prior to considering Strattera or other medications and the patient was agreeable. No side effects or medical issues reported. She continues to request long-acting anti-psychotic medications and is willing to participate in a Patient Assistance Program until she is able to obtain insurance in [place]. Sleep: 6.25hr Appetite: "fine" Suicidal and homicidal ideation: Denies Auditory hallucinations: "Under control". Continues to have conversations with voices when they are under control and rates them as 1.5/10 Visual hallucinations: Denies Other Psychotic Symptoms: Denies Anxiety: 2-3/10 Depression: 0/10 Current Medications Current Medications Nicotine 1 patch DAILY TOPICAL Last administered on 10/13/16 14:35; Admin Dose 1 PATCH; Start 10/13/16 at 13:56 Non-Formulary Medication 1 HS XX Last administered on 10/13/16 21:19; Admin Dose 1; Start 10/13/16 at 21:00 Mental Status Exam Vital Signs Vital Signs Date Time Temp Pulse Resp B/P Pulse Ox O2 Delivery O2 Flow Rate FiO2 10/13/16 17:17 36.6 79 16 103/75 Appearance: Neat/well groomed Attitude: Pleasant, Cooperative Behavior: Distractible Affect: Well Modulated/Appropriate (fairly) Mood: Expansive Thought Process/Associations: Tangential, Circumstantial Speech Production: Abundant Speech Rate: Pressured (improved) Speech Articulation: Normal Thought Content: Perseveration Danger to Self/Suicidal Ideati: None Danger to Others: None Hallucinations: Auditory (Endorses), Visual (Denies) Consciousness: Alert Orientation: Person, Place, Date, Situation Memory: Grossly Intact Estimate Intellectual Function: Average Basis for IQ estimate: Awareness current events, Word use/vocabulary, Educational history Attention/Concentration & Cogn: Impaired Insight: Good Judgement: Limited Mental Health Plan The patient is a 36-year-old female with a history of multiple inpatient hospitalizations and a history of schizophrenia or schizoaffective disorder, although her report of elevated mood would suggest schizoaffective disorder bipolar type, and her medication history would be appropriate for this diagnosis. The patient reported her best response to aripiprazole and lithium, and is willing to restart these medications. She is not willing to restart Depakote. She did request to restart Strattera and it was discussed with the patient that we should wait until she is stabilized on her medications before considering a stimulant. The patient appears more organized today and reports her auditory hallucinations are stabilizing and is asking about getting an injection to help with adherence. Patient agreeable to increasing bupropion for attention/focus/ anxiety to determine whether any further treatment is necessary. [place] AXIS I: 1. Schizoaffective disorder bipolar type versus schizophrenia chronic paranoid type. 2. Methamphetamine use disorder. 3. Alcohol use disorder. AXIS II: Deferred. AXIS III: None acute. AXIS IV: Moderate to severe. AXIS V: Global Assessment of Functioning 35 Treatments 1. The patient is admitted to the inpatient unit and we provided a safe and secure environment. 2. The patient is denying current active suicidality and is not in need of a one-to-one at this time. 3. The patient is encouraged to participate with group and milieu activities. 4. The patient will be seen by the treatment team on a daily basis to assess symptoms, side effects and response to treatment. 5. The patient will be restarted on aripiprazole 20 mg daily. 6. Diphenhydramine 25 mg to 50 mg by mouth nightly when necessary insomnia 7. Abilify Maintena 400mg IM under evaluation, consider Abilify Aristada 882mg to avoid adding oral aripiprazole. Will help patient with the Patient Assistance Program for discharge. 8. Increase Wellbutrin XL to 300 mg daily. 9. Continue clonazepam 1mg nightly with 1 mg by mouth every 6 hours as needed for anxiety. 10. Consider Straterra once stable on Wellbutrin. 11. Anticipated length of stay is 10-14 days, possibly longer. Clifford Carlos MD Oct 13, 2016 22:23
--- NOTE | 2016-10-14 05:32 | NUR ---
nursing, nights, 11-7 s/o- has appeared to sleep after 0015 during q 15 minute assessments. a- no apparent distress. p- monitor behavior/emotional state, quality, times and amount of sleep, use and effect of medication. manuelito
--- NOTE | 2016-10-14 05:48 | NUR ---
OBSERVATIONS Pt was mostly cooperative but became defensive and mildly agitated when notified that pts are not allowed to share clothing after this [facility] learned that pt was in possession of another pt's sweatshirt. Pt socialized with peers doing artwork in the group room and playing cards in the dining area. Pt attended evening wrap-up group and stated that she accomplished every one of her goals of reading the Bible, taking a nap, exercising, and having fun; rated her mood 7/10. Pt recorded asleep at 0015 and slept through the night. Maintained Q15 checks for safety as directed.
[2016-10-14] MEDS: buPROPion XL 300 mg ER24 Tablet PO SCH (08:03)
[2016-10-14] MEDS: ARIPiprazole 10 mg Tablet PO SCH (08:06)
[2016-10-14 10:22] VITALS: BP 113/75; PULSE 91; RESP 16
--- NOTE | 2016-10-14 12:55 | NUR ---
Nursing Dayshift: S: "This is really cool! Do you want to color with us?" O: Patient coloring with a peer in the dining room. Has been eating well at meals. Calm and pleasant on approach. Social with peers. Med compliant. Good eye contact. Anxiety a 10/17. Requested a Klonopin and told she had to wait another hour due to having one around 0800 for increased anxiety. Depression a 06/17. Denies harmful thoughts and hallucinations. A: Cooperative. Pleasant mood. Social. P: CPOC. Monitor mood and behavior.
--- NOTE | 2016-10-14 18:47 | PCM.PNPSY ---
Subjective Date of Service Oct 14, 2016 Subjective Patient reports "I don't feel delusions anymore...I'm aware and able to concentrate." The patient reported feeling "Not unhealthy, not controlled by the voices." Patient did endorse still having auditory hallucinations and telepathic conversations with others but did not feel that these were problematic. Patient reported feeling much better with addition of bupropion and that her concentration had improved. We discussed increasing aripiprazole for a short burst to boost blood level and then discontinue as patient is concerned about the amount of time the medication takes to stabilized. She would still like to get in the [employer] assistance program if possible. She requests increase of Benadryl at bedtime for insomnia. No side effect reports. Sleep: 7.5 hours, better Appetite: "great" Suicidal and homicidal ideation: denies Auditory hallucinations: as above Visual hallucinations: denies Other Psychotic Symptoms: as above Anxiety: good 2/10 Depression: 0/10 Current Medications Current Medications Bupropion HCl 300 mg DAILY PO Last administered on 10/14/16 08:03; Admin Dose 300 MG; Start 10/14/16 at 08:30 Nicotine 1 patch DAILY TOPICAL Last administered on 10/14/16 08:06; Admin Dose 1 PATCH; Start 10/13/16 at 13:56 Non-Formulary Medication 1 HS XX Last administered on 10/13/16 21:19; Admin Dose 1; Start 10/13/16 at 21:00 Mental Status Exam Appearance: Neat/well groomed Attitude: Pleasant, Cooperative Behavior: Distractible Affect: Well Modulated/Appropriate (fairly) Mood: Expansive (Mildly) Thought Process/Associations: Tangential, Circumstantial Speech Production: Normal Speech Rate: Normal Speech Articulation: Other (characteristic dysarthria appears baseline) Thought Content: Perseveration Danger to Self/Suicidal Ideati: None Danger to Others: None Delusions: Other (telepathy) Hallucinations: Auditory (Endorses), Visual (Denies) Consciousness: Alert Orientation: Person, Place, Date, Situation Memory: Grossly Intact Estimate Intellectual Function: Average Basis for IQ estimate: Awareness current events, Word use/vocabulary, Educational history Attention/Concentration & Cogn: Impaired Insight: Good Judgement: Good Mental Health Plan The patient is a 36-year-old female with a history of multiple inpatient hospitalizations and a history of schizophrenia or schizoaffective disorder, although her report of elevated mood would suggest schizoaffective disorder bipolar type, and her medication history would be appropriate for this diagnosis. The patient reported her best response to aripiprazole and lithium, and was willing to restart these medications. She was not willing to restart Depakote. She did request to restart Strattera and it was discussed with the patient that we should wait until she is stabilized on her medications before considering a stimulant. The patient appears more organized today and reports her auditory hallucinations are stabilizing and is asking about getting an injection to help with adherence. Patient reports increased bupropion for attention/focus/ anxiety helpful with concentration. [facility] cannot receive aripiprazole inpatient but may qualify for Aristada assistance program. [place] AXIS I: 1. Schizoaffective disorder bipolar type versus schizophrenia chronic paranoid type. 2. Methamphetamine use disorder. 3. Alcohol use disorder. AXIS II: Deferred. AXIS III: None acute. AXIS IV: Moderate to severe. AXIS V: Global Assessment of Functioning 35 Treatments 1. The patient is admitted to the inpatient unit and we provided a safe and secure environment. 2. The patient is denying current active suicidality and is not in need of a one-to-one at this time. 3. The patient is encouraged to participate with group and milieu activities. 4. The patient will be seen by the treatment team on a daily basis to assess symptoms, side effects and response to treatment. 5. Continue aripiprazole 20 mg daily. Will add 10mg daily x 5 days. 6. Diphenhydramine 50 mg by mouth nightly when necessary insomnia 7. Abilify Maintena 400mg IM under evaluation, consider Abilify Aristada 882mg to avoid adding oral aripiprazole. Patient may qualify for Patient Assistance Program for discharge. 8. Continue Wellbutrin XL 300 mg daily. 9. Continue clonazepam 1mg nightly with 1 mg by mouth every 6 hours as needed for anxiety. 10. Consider Straterra once stable on Wellbutrin. 11. Anticipated length of stay is 10-14 days, possibly longer. Clifford Carlos MD Oct 14, 2016 18:47
--- NOTE | 2016-10-14 19:01 | NUR ---
[facility] Day Shift Pt affect and behavior appear mostly unchanged from previous shifts. Pt maintained behavioral control throughout the shift. Pt affect appears mostly euthymic, occasionally flat/irritable. Pt is active on the unit throughout the shift and spends most of her time engaging with staff and peers and participating in unit activities. Pt is appropriate with staff and peers when active on the unit. Pt appears to actively attend to internal stimuli throughout the shift, occasionally talking to herself. Pt spends most of the shift reading/resting in her room or engaging in unit activities. Pt attended community meeting and has attended group activities throughout the shift. Pt has attended all meals at this time and has eaten approx 100% of all meals.
[2016-10-14] MEDS: diphenhydrAMINE 50 mg Capsule PO PRN (20:13)
--- NOTE | 2016-10-14 20:35 | NUR ---
operations manager/Counselor: S/O: Patient slept 6 hours last night per staff. Patient denies S/I and H/I. She denies auditory and visual hallucinations. Depression is 0/10 and anxiety is "fine"/10. When asked her mood, patient stated, "Up and down." A: Patient is cooperative, distractible, tangential, limited insight, limited judgment. P: Follow care plan, coordinate with out-patient providers.
--- NOTE | 2016-10-15 05:15 | NUR ---
Nursing Note Waterproofer 7pm to 7am Pt awake at start of shift, affect constricted, mood disgruntled, observed walking down the [place] talking to self. Pt c/o male peer being intrusive. You people need to do something about him. Pt received Benadryl 50mg and Klonopin 1mg before going to bed at midnight. Pt slept the remainder of the shift for a total of 6 hours Monitored pt with q 15 minute face checks for safety location and accountability
[2016-10-15] MEDS: ARIPiprazole 10 mg Tablet PO SCH ×2 (08:34→08:35)
[2016-10-15] MEDS: buPROPion XL 300 mg ER24 Tablet PO SCH (08:35)
[2016-10-15 10:00] VITALS: BP 103/66; PULSE 66; RESP 17
--- NOTE | 2016-10-15 13:42 | NUR ---
day shift nursing note S/O-"I am writing things down because I am going to send my family letters to make amends ...it is stressing me out." Pt. has been cooperative and pleasant on the unit. She denies hallucinations, SI or depression and rates her anxiety at 6/10. She has an adequate appetite and stated she slept well last night. She asked for something for anxiety several times on the unit but was given Klonopin 1 mg. at 0756 PO prn so she was redirected to another activity. She is tangential in her speech. A-Psychosis. Limited insight/judgment. P-Monitor for safety per protocol. Assess efficacy of meds to manage target sxs. Encourage engagement in milieu.
--- NOTE | 2016-10-15 15:43 | NUR ---
Refractory Technician/Counselor S:"I've been writing letters to my family. It's making my anxiety go up." O: Patient denies any SI or HI, no AVH, stated that her anxiety was up due to writing letters, and her depression was low. A: Patient stated that she was not having any auditory or visual hallucinations, but that it was telepathy she was experiencing. During group, she was observed responding to internal stimuli. She continues to stress the need for Strattera and would like her anxiety medications changed. She was pleasant and cooperative. She was out in the milieu and on the patio, interacting with other patients. P: Follow care plan and coordinate with outpatient providers.
[2016-10-15] MEDS: diphenhydrAMINE 50 mg Capsule PO PRN ×2 (17:42→20:48)
--- NOTE | 2016-10-15 17:46 | NUR ---
Nurses PRN Patient received Benadryl 50mg for c/o difficulty swallowing and choking on food. She denied a sore throat.Will assess response.
--- NOTE | 2016-10-15 22:49 | NUR ---
Nurses Note evening Patient reported relief from swallowing difficulties with the administration of Benadryl. She continues to mumble under her breathe talking to herself but denied auditory hallucinations. Patient has been pleasant,social and medication compliant. She is hopeful to repeat drug rehab again once she returns home. Will maintain q 15min.checks for safety and support.
--- NOTE | 2016-10-16 00:54 | NUR ---
Nursing, NOC Patient visible on unit at start of shift, interacting appropriately w/ select peers. Mood is disgruntled, easily agitated. Denies hearing voices, but observed on the unit talking to herself. Requested PRN meds for sleep, but reports "Not able to get to sleep." Patient received Benadryl, Klonipin, Tylenol at HS. Sitting up in a chair in the common room by herself at 0100. Reported to [facility] that she has started menstruating; feminine products provided. CTM for changes.
[2016-10-16] MEDS: diphenhydrAMINE 50 mg Capsule PO PRN ×2 (03:11→20:50)
[2016-10-16] MEDS: buPROPion XL 300 mg ER24 Tablet PO SCH (09:13)
[2016-10-16] MEDS: ARIPiprazole 10 mg Tablet PO SCH ×2 (09:13→09:14)
[2016-10-16 12:35] VITALS: BP 101/72; PULSE 92; RESP 19
--- NOTE | 2016-10-16 17:51 | PCM.PNPSY ---
Subjective Date of Service Oct 16, 2016 Subjective I spent 30 minutes both reviewing treatment plan with our clinical team, interviewing the patient and providing supportive/educational psychotherapy. I spent more than 50% of the time counseling the patient. I reviewed the treatment plan with the patient and discussed options available including the potential risks, benefits and side effects. Magalie reports a slight improvement in thought organization and mood stability. Staff reports that she has been active and participating well in one-to-one unit and group activities. She slept 0 hours and denies psychotic symptoms review. Client reports feeling guilty and is working on writing letters to make amends. She is showing improved insight and judgment. She denies medication side effects. She was able to identify her medications and what they were used to treat. Current Medications Current Medications Aripiprazole 10 mg DAILY PO Last administered on 10/16/16 09:14; Admin Dose 10 MG; Start 10/15/16 at 08:30; Stop 10/19/16 at 21:00 Diphenhydramine HCl 50 mg HS PRN PO Last administered on 10/16/16 03:11; Admin Dose 50 MG; Start 10/14/16 at 19:10 Mental Status Exam Vital Signs Vital Signs Date Time Temp Pulse Resp B/P Pulse Ox O2 Delivery O2 Flow Rate FiO2 10/16/16 12:35 35.4 92 19 101/72 Appearance: Neat/well groomed Attitude: Pleasant, Cooperative Behavior: Distractible Affect: Well Modulated/Appropriate (fairly) Mood: Expansive (Mildly) Thought Process/Associations: Tangential, Circumstantial Speech Production: Normal Speech Rate: Normal Speech Articulation: Other (characteristic dysarthria appears baseline) Thought Content: Perseveration Danger to Self/Suicidal Ideati: None Danger to Others: None Delusions: Other (telepathy) Consciousness: Alert Orientation: Person, Place, Date, Situation Memory: Grossly Intact Estimate Intellectual Function: Average Basis for IQ estimate: Awareness current events, Word use/vocabulary, Educational history Attention/Concentration & Cogn: Impaired Insight: Good Judgement: Good Mental Health Plan The patient is a 36-year-old female with a history of multiple inpatient hospitalizations and a history of schizophrenia or schizoaffective disorder, although her report of elevated mood would suggest schizoaffective disorder bipolar type, and her medication history would be appropriate for this diagnosis. The patient reported her best response to aripiprazole and lithium. The patient appeared more organized today and denies auditory hallucinations. She appears to be making fairly steady improvement in thought organization and mood. [place] AXIS I: 1. Schizoaffective disorder bipolar type versus schizophrenia chronic paranoid type. 2. Methamphetamine use disorder. 3. Alcohol use disorder. AXIS II: Deferred. AXIS III: None acute. AXIS IV: Moderate to severe. AXIS V: Global Assessment of Functioning 35 Treatments Patient is being provided with a high degree of safety through our unit structure and active adult engagement provided by our mental health professionals, mental health technicians, psychiatric nurses and myself. We are focusing on developing improved coping skills and identifying stressors that may have led to current episode. We will attempt to: * Integrate into therapeutic groups, milieu and individual therapy. * Maintain in a closely monitored and structured unit * Provide low-stimulation environment * Obtain collateral data to assist in treatment planning * Assess degree of lability of affect and impulse control * Complete safety plan * Decrease frequency of relapse and need for re-hospitalization * Denies thoughts of harm to self and/or others * Establish a consistent sleep pattern * Medication effective in stabilization of mood and/or thought process * Reduce the risk of imminent harm to self and/or others by providing a safe environment * Tolerates medication without side effects Patient will be on the following psychiatric medications: Abilify 20 mg daily Wellbutrin XL 300 mg daily Klonopin 1 mg at bedtime Patient's legal status Patient is on a 72 hour involuntary treatment hold. Anticipated number of hospital days to achieve above goals: 10-14 Disposition: Home Drew Cool MD Oct 16, 2016 17:51
--- NOTE | 2016-10-16 17:54 | NUR ---
Vamsi Notes Magalie S: "Just want to read my Bible " O: Pt was observed talking to herself in her room, when approached patient she states she was reading her Bible out loud. Pt gets irritated easily A: Pt appears well groomed. Pt has been observed mumbling to herself frequently, pt states she is having auditory hallucinations and that she wishes there was a way to "get a restraining order on them" that its not fair that these voices can just keep "talking and talking" Pt asked for klonazepam 1mg to help her with the voices. Pt rates her anxiety at 7/10. She states her mood is not very good but wouldn't rate it. Pt states her depression is a 0/10. P: Follow plan of care, monitor behaviors. Monitor for side effects.
--- NOTE | 2016-10-16 18:16 | PROG NOTE ---
[address] [address] PROGRESS NOTE PATIENT: MIL HOU : 1980 MR#: [id number] ADMIT: 10/06/2016 JOB ID: [id number] DATE: 10/15/2016 SUBJECTIVE: I spent 30 minutes both reviewing treatment plan with our clinical team and providing supportive and educational psychotherapy for the client. I spent more than 50% of that time counseling the patient. I reviewed the treatment plan with the patient and discussed options available including potential risks, benefits, and side effects. Client reports a mild improvement in thought organization and mood stability. Staff reports that she has been active and participating well in the program. She slept 6 hours. She is showing improved insight and judgment and denies medication side effects. MENTAL STATUS EXAMINATION: Client neatly and stylishly dressed. Good eye contact. Behavior calm. Attitude cooperative. Speech normal rate and rhythm. Mood euthymic. Affect congruent. Normal intensity. Thought process: Client is able to relate a coherent history. No signs of psychosis. Thought content: Significant for themes of future planning, how to take care of herself after she is discharged. Alert and oriented to person, place, and date. Denies suicidal ideation or auditory hallucinations. Memory appropriate. Attention and concentration appropriate. Insight appropriate. Judgment mildly impaired. Impulse control mildly impaired. Reality testing intact. Competence to handle current stressors is currently being overwhelmed. IMPRESSION: The patient is a 36-year-old white female with history of multiple inpatient treatment hospitalizations for schizoaffective disorder. She reported a good response in the past to Abilify and lithium and is willing to take these medications. She appeared appropriate and was able to communicate in an effective manner with me today. She appears to make making fairly steady improvement in thought organization and mood stability. DIAGNOSIS: [place] I: 1. Schizoaffective disorder. 2. Methamphetamine use disorder. 3. Alcohol use disorder. [place] II: Deferred. [place] III: None. [place] IV: Moderate. [place] V: Current global Assessment of Functioning equals 35. PLAN: Recommend client be admitted to our unit and be provided with a high degree of safety through the structure and active adult engagement she will receive here. We will have her participate in one-to-one, unit, and group activities focused on improving coping skills and identifying stressors that may have led to current episode. Will continue her on a medication regimen of Abilify, Wellbutrin, and Klonopin to target symptoms of thought disorganization and depression. Client is currently on a 72 hour involuntary treatment hold and will likely need 10-14 days to stabilize.
--- NOTE | 2016-10-16 20:49 | NUR ---
Observations 0900 - 2130 Pt affect and mood was labile, needy and very busy. Pt was in and out of her room most of the morning. Pt was pleasant, polite and cooperative when approached. Pt maintained behavior throughout the shift. Pt speech and eye contact was good. Pt ate snack. Pt attended community meeting, groups and unit activities. Pt did arts and crafts most of the afternoon and appeared to enjoy this. Pt attended meals in [facility] and ate approximately 75%. Pt was observed every 15 minutes through the shift as ordered.
--- NOTE | 2016-10-16 23:29 | NUR ---
Observations 1900 to 0700 Pt attended and participated in wrap up group. Pt ate a snack. Pt spends free time working on art projects and interacting with peers. Pt appears disheveled and internally preoccupied. Pt easily agitated when staff can not meet her requests. Though pt maintained behavioral control. Pt appeared asleep at 2215 and has remained asleep. Pt respirations were observed when asleep. Staff completed 15 min close observations as ordered.
--- NOTE | 2016-10-17 05:02 | NUR ---
shiftman [id number] Pt alert and responsive;Pt participated in wrap up group with peers and appeared to be interacting well. Pt took all meds including PRN Clonazepam and Benadryl during HS. Pt was not happy about not getting a glue stick at 2200;however, she went to bed after voicing her concerns. Pt has been in bed/asleep ever since 2200 without s/sx of distress. Continue to monitor for emotional well being, mood changes, and q15min checks for safety. Care continues.
[2016-10-17] MEDS: buPROPion XL 300 mg ER24 Tablet PO SCH (07:47)
[2016-10-17] MEDS: ARIPiprazole 10 mg Tablet PO SCH ×2 (07:47)
[2016-10-17 09:00] VITALS: BP 97/69; PULSE 83; RESP 17
--- NOTE | 2016-10-17 12:23 | PCM.PNPSY ---
Subjective Date of Service Oct 17, 2016 Subjective I spent 30 minutes both reviewing treatment plan with our clinical team, interviewing the patient and providing supportive/educational psychotherapy. I spent more than 50% of the time counseling the patient. I reviewed the treatment plan with the patient and discussed options available including the potential risks, benefits and side effects. Magalie reports a slight improvement in thought organization and mood stability. Staff reports that she has been active and participating well in one-to-one unit and group activities. She slept 7 hours and denies psychotic symptoms review. Client reports feeling guilty and is working on writing letters to make amends. She is showing improved insight and judgment. She denies medication side effects. She was able to identify her medications and what they were used to treat. Current Medications Current Medications Nicotine Polacrilex 2 mg Q4H PRN BUCCAL Last administered on 10/17/16t 09:04; Admin Dose 2 MG; Start 10/17/16 at 08:50 Mental Status Exam Appearance: Neat/well groomed Attitude: Pleasant, Cooperative Behavior: No unusual behavior Affect: Well Modulated/Appropriate (fairly) Mood: Expansive (Mildly) Thought Process/Associations: Circumstantial Speech Production: Normal Speech Rate: Normal Speech Articulation: Other (characteristic dysarthria appears baseline) Thought Content: Perseveration Danger to Self/Suicidal Ideati: None Danger to Others: None Delusions: Other (telepathy) Consciousness: Alert Orientation: Person, Place, Date, Situation Memory: Grossly Intact Estimate Intellectual Function: Average Basis for IQ estimate: Awareness current events, Word use/vocabulary, Educational history Attention/Concentration & Cogn: Impaired Insight: Good Judgement: Good Mental Health Plan The patient is a 36-year-old female with a history of multiple inpatient hospitalizations and a history of schizophrenia or schizoaffective disorder, although her report of elevated mood would suggest schizoaffective disorder bipolar type, and her medication history would be appropriate for this diagnosis. The patient reported her best response to aripiprazole and lithium. The patient appeared more organized today and denies auditory hallucinations. She appears to be making fairly steady improvement in thought organization and mood. [place] AXIS I: 1. Schizoaffective disorder bipolar type versus schizophrenia chronic paranoid type. 2. Methamphetamine use disorder. 3. Alcohol use disorder. AXIS II: Deferred. AXIS III: None acute. AXIS IV: Moderate to severe. AXIS V: Global Assessment of Functioning 35 Treatments Patient is being provided with a high degree of safety through our unit structure and active adult engagement provided by our mental health professionals, mental health technicians, psychiatric nurses and myself. We are focusing on developing improved coping skills and identifying stressors that may have led to current episode. We will attempt to: * Integrate into therapeutic groups, milieu and individual therapy. * Maintain in a closely monitored and structured unit * Provide low-stimulation environment * Obtain collateral data to assist in treatment planning * Assess degree of lability of affect and impulse control * Complete safety plan * Decrease frequency of relapse and need for re-hospitalization * Denies thoughts of harm to self and/or others * Establish a consistent sleep pattern * Medication effective in stabilization of mood and/or thought process * Reduce the risk of imminent harm to self and/or others by providing a safe environment * Tolerates medication without side effects Patient will be on the following psychiatric medications: Abilify 20 mg daily Wellbutrin XL 300 mg daily Klonopin 1 mg at bedtime Patient's legal status Patient is on a 72 hour involuntary treatment hold. Anticipated number of hospital days to achieve above goals: 10-14 Disposition: Home Drew Cool MD Oct 17, 2016 12:23
--- NOTE | 2016-10-17 15:35 | NUR ---
Journalism Professor/Counselor S:" The voices are just there telepathically." O: Patient denied any SI or HI, stated that the voices were fine and wanted to distinguish between telepathy voices and the other voices she sometimes hears. She rated her depression at a 3 and her anxiety at a 6. A: Patient has been in the multipurpose room participating in art projects and interacting with peers. She has been friendly and cooperative. She has been out on the milieu as well as walking the halls for exercise. P: Follow care plan and coordinate with outpatient providers.
--- NOTE | 2016-10-17 17:51 | NUR ---
Nursin to 190. S: I feel like my energy is down. I like to be happy, telling jokes. But I just can't do it today. O: Magalie has been involved in art projects today. Attended groups. Rated depression as 0/10, anxiety at 6/10, and denied suicidal ideation. PRN medication of Klonopin 1 mg at 1220 for anxiety at 6/10. At 1800, stated that she didn't feel any effect but feels calm now. Was overheard by staff stating that she felt she was getting too much medication but "I'm not going to say anything because I want to go home.' A/P: assess for med effects Addendum: 10/17/16 at 1804 by ALEKSANDER QUIROZ RN Amended: Links added.
[2016-10-17] MEDS: diphenhydrAMINE 50 mg Capsule PO PRN (21:59)
--- NOTE | 2016-10-17 23:50 | NUR ---
NOC OBS Pt out on unit much of evening. Enjoyed music and arts. Left in the middle of wrap up group to go to bed. Maintained behavioral control. Asleep at 2300. Observed Q15 as ordered.
--- NOTE | 2016-10-18 05:31 | NUR ---
engraver pantograph [id number] Pt alert and responsive making needs known and c/o anxiety. No tearfulness or behavioral issues noted. PRN Benadryl and Clonazepam given per request and the Pt went to bed appearing asleep. Continue to monitor for mood changes, emotional well being, and 15min checks for safety. Care continues.
[2016-10-18 08:07] VITALS: BP 107/72; PULSE 92; RESP 20
[2016-10-18] MEDS: ARIPiprazole 10 mg Tablet PO SCH ×2 (08:12)
[2016-10-18] MEDS: buPROPion XL 300 mg ER24 Tablet PO SCH (08:12)
--- NOTE | 2016-10-18 14:41 | PCM.PNPSY ---
Subjective Date of Service Oct 18, 2016 Subjective I spent 30 minutes both reviewing treatment plan with our clinical team, interviewing the patient and providing supportive/educational psychotherapy. I spent more than 50% of the time counseling the patient. I reviewed the treatment plan with the patient and discussed options available including the potential risks, benefits and side effects. Magalie reports continued improvement in thought organization and mood stability. Staff reports that she has been active and participating well in one-to-one unit and group activities. She slept 7 hours and denies psychotic symptoms review. Client reports feeling guilty and is working on writing letters to make amends. She is showing improved insight and judgment. She denies medication side effects. Current Medications Current Medications Nicotine Polacrilex 2 mg Q4H PRN BUCCAL Last administered on 10/17/16t 21:10; Admin Dose 2 MG; Start 10/17/16 at 08:50 Mental Status Exam Vital Signs Vital Signs Date Time Temp Pulse Resp B/P Pulse Ox O2 Delivery O2 Flow Rate FiO2 10/18/16 08:07 36.5 92 20 107/72 Appearance: Neat/well groomed Attitude: Pleasant, Cooperative Behavior: No unusual behavior Affect: Well Modulated/Appropriate Mood: Euthymic Thought Process/Associations: Logical/Sequential, Goal Directed Speech Production: Normal Speech Rate: Normal Speech Articulation: Normal Thought Content: Perseveration Danger to Self/Suicidal Ideati: None Danger to Others: None Delusions: Other (telepathy) Consciousness: Alert Orientation: Person, Place, Date, Situation Memory: Grossly Intact Estimate Intellectual Function: Average Basis for IQ estimate: Awareness current events, Word use/vocabulary, Educational history Attention/Concentration & Cogn: Impaired Insight: Good Judgement: Good Mental Health Plan The patient is a 36-year-old female with a history of multiple inpatient hospitalizations and a history of schizophrenia or schizoaffective disorder, although her report of elevated mood would suggest schizoaffective disorder bipolar type, and her medication history would be appropriate for this diagnosis. The patient reported her best response to aripiprazole and lithium. The patient appeared more organized today and denies auditory hallucinations. She appears to be making fairly steady improvement in thought organization and mood. [place] AXIS I: 1. Schizoaffective disorder bipolar type versus schizophrenia chronic paranoid type. 2. Methamphetamine use disorder. 3. Alcohol use disorder. AXIS II: Deferred. AXIS III: None acute. AXIS IV: Moderate to severe. AXIS V: Global Assessment of Functioning 35 Treatments Patient is being provided with a high degree of safety through our unit structure and active adult engagement provided by our mental health professionals, mental health technicians, psychiatric nurses and myself. We are focusing on developing improved coping skills and identifying stressors that may have led to current episode. We will attempt to: * Integrate into therapeutic groups, milieu and individual therapy. * Maintain in a closely monitored and structured unit * Provide low-stimulation environment * Obtain collateral data to assist in treatment planning * Assess degree of lability of affect and impulse control * Complete safety plan * Decrease frequency of relapse and need for re-hospitalization * Denies thoughts of harm to self and/or others * Establish a consistent sleep pattern * Medication effective in stabilization of mood and/or thought process * Reduce the risk of imminent harm to self and/or others by providing a safe environment * Tolerates medication without side effects Patient will be on the following psychiatric medications: Abilify 20 mg daily Wellbutrin XL 300 mg daily Klonopin 1 mg at bedtime Patient's legal status Patient is on a 72 hour involuntary treatment hold. Anticipated number of additional hospital days to achieve above goals: 2 Disposition: Home Drew Cool MD Oct 18, 2016 14:41
--- NOTE | 2016-10-18 15:32 | NUR ---
Stratigraphy Teacher/Counselor S:"I'm doing good today." O:Patient did not report any SI or HI, "hardly any" auditory hallucinations, no visual hallucinations, and she rated her anxiety as fine, and no depression. A:Patient stated that she was doing well today and was excited at her upcoming discharge. She has participated in group and has been doing art projects. She is willing to follow up services with her previous mental health providers. P: Follow care plan and coordinate with outpatient providers.
[2016-10-18] MEDS: Magnesium Hydroxide 10 mL Oral Concentration PO PRN (18:17)
--- NOTE | 2016-10-18 18:53 | NUR ---
Nursin to 1900 S: I am just telling the witches how many cigarettes I smoked. They are always bugging me about smoking. O: Pt observed standing in the [place] talking aloud with no one around. Explanation of what was going on in statement above. She worked on [employer] projects during much of shift. Makes many small requests during activity: sissors, glue, special colored marker... Maintained behavioral control. Speech clearer than yesterday. States medications make her tired. Asks if that will resolve. Denies depression or suicidal ideation. Requested and received PRN MOM for constipation, Klonopin 1 mg at 1500 for anxiety, and nicorette losenges. A: Auditory hallucinations. Anxiety. P: Continue to assess for med effects.
--- NOTE | 2016-10-18 19:08 | NUR ---
Obs Dayshift Pt is often overheard complaining about staff to peers, demanding, and irritable that she isn't able to get the items that she is constantly requesting, ie: scissors, glue, sharpies. Pt needed all new bedding because "I put a markers in my back pocket and it broke when I sat on it on my bed", "I don't understand what staff does around here, because they aren't doing anything for me, I need my art supplies" Pt is often seen responding to IS, in full conversations w/ unseen others. Pt did go outside for a bit and played football w/ a peer. Pt spent most of the day coloring and working on an art project. Good ADL's, Good meals
--- NOTE | 2016-10-19 02:23 | NUR ---
mine shifter [id number] Pt appeared asleep in bed upon this staff writer arriving onto unit and encouraged Pt to attend wrap up group with peers, but pt refused. Pt given HS [place] and Clonazepam non-administered due to appearance of sleeping. Pt alert and oriented x 3. Pt removed Nicotine patch upon request and no behavioral issues or bizarre acts noted. Pt continues to appear sleeping without s/sx of distress. Continue to monitor for mood changes, emotional well being, and q15min.
[2016-10-19] MEDS: buPROPion XL 300 mg ER24 Tablet PO SCH (08:11)
[2016-10-19] MEDS: ARIPiprazole 10 mg Tablet PO SCH ×2 (08:14→08:17)
[2016-10-19] MEDS: Magnesium Hydroxide 10 mL Oral Concentration PO PRN (09:26)
[2016-10-19 10:15] VITALS: BP 106/70; PULSE 78; RESP 16
--- NOTE | 2016-10-19 11:24 | PCM.PNPSY ---
Subjective Date of Service Oct 19, 2016 Subjective I spent 30 minutes both reviewing treatment plan with our clinical team, interviewing the patient and providing supportive/educational psychotherapy. I spent more than 50% of the time counseling the patient. I reviewed the treatment plan with the patient and discussed options available including the potential risks, benefits and side effects. Magalie reports continued improvement in thought organization and mood stability. Staff reports that she has been active and participating well in one-to-one unit and group activities. She slept 6 hours and denies psychotic symptoms review. She is showing improved insight and judgment. She denies medication side effects. Mental Status Exam Vital Signs Vital Signs Date Time Temp Pulse Resp B/P Pulse Ox O2 Delivery O2 Flow Rate FiO2 10/19/16 10:15 36.7 78 16 106/70 Appearance: Neat/well groomed Attitude: Pleasant, Cooperative Behavior: No unusual behavior Affect: Well Modulated/Appropriate Mood: Euthymic Thought Process/Associations: Logical/Sequential, Goal Directed Speech Production: Normal Speech Rate: Normal Speech Articulation: Normal Thought Content: Appropriate Danger to Self/Suicidal Ideati: None Danger to Others: None Delusions: Other (telepathy) Consciousness: Alert Orientation: Person, Place, Date, Situation Memory: Grossly Intact Estimate Intellectual Function: Average Basis for IQ estimate: Awareness current events, Word use/vocabulary, Educational history Attention/Concentration & Cogn: Grossly Intact Insight: Good Judgement: Good Mental Health Plan The patient is a 36-year-old female with a history of multiple inpatient hospitalizations and a history of schizophrenia or schizoaffective disorder, although her report of elevated mood would suggest schizoaffective disorder bipolar type, and her medication history would be appropriate for this diagnosis. The patient reported her best response to aripiprazole and lithium. The patient appeared to have good thought organization today and denies auditory hallucinations. She is making steady improvement in thought organization and mood. [place] AXIS I: 1. Schizoaffective disorder bipolar type versus schizophrenia chronic paranoid type. 2. Methamphetamine use disorder. 3. Alcohol use disorder. AXIS II: Deferred. AXIS III: None acute. AXIS IV: Moderate to severe. AXIS V: Global Assessment of Functioning 40 Treatments Patient is being provided with a high degree of safety through our unit structure and active adult engagement provided by our mental health professionals, mental health technicians, psychiatric nurses and myself. We are focusing on developing improved coping skills and identifying stressors that may have led to current episode. We will attempt to: * Integrate into therapeutic groups, milieu and individual therapy. * Maintain in a closely monitored and structured unit * Provide low-stimulation environment * Obtain collateral data to assist in treatment planning * Assess degree of lability of affect and impulse control * Complete safety plan * Decrease frequency of relapse and need for re-hospitalization * Denies thoughts of harm to self and/or others * Establish a consistent sleep pattern * Medication effective in stabilization of mood and/or thought process * Reduce the risk of imminent harm to self and/or others by providing a safe environment * Tolerates medication without side effects Patient will be on the following psychiatric medications: Abilify 20 mg daily Wellbutrin XL 300 mg daily Klonopin 1 mg at bedtime Patient's legal status Patient is on a 72 hour involuntary treatment hold. Anticipated number of additional hospital days to achieve above goals: 1 Disposition: Plan to discharge patient to Home 10/20/2016 Drew Cool MD Oct 19, 2016 11:24
--- NOTE | 2016-10-19 12:28 | NUR ---
NURSING DAYS 7-7 (10/19) S/O- Patient appears irritated that she needs to remain in hospital. Patient states "You need to knock and ask before entering my room." Patient c/o constipation, state has not had BM for 7 days. Cooperative and compliant with care. goal for day was to take to event services manager. Hx of audio hallucinations. A- Milk of Mag given for constipation, made aware. P- Continue plan of care, stabilize d/c Monday, parent to help work on housing. Addendum: 10/19/16 at 1334 by JANAK RODRÍGUEZ RN ANXIETY Patient appears internally preoccupied and requesting PNR for anxiety. 0-5 Clonazepam given.
--- NOTE | 2016-10-19 12:35 | NUR ---
[facility] Day Shift Pt affect and behavior appear mostly unchanged from previous shifts. Pt maintained behavioral control throughout the shift. Pt affect appears mostly euthymic, occasionally flat/irritable. Pt is less active on the unit than noted on previous shifts. Pt spends most of her time resting in her room, engaging with staff and peers and participating in unit activities. Pt is appropriate with staff and peers when active on the unit. Pt appears to actively attend to internal stimuli throughout the shift, occasionally talking to herself. Pt spends most of the shift reading/resting in her room or engaging in unit activities. Pt attended community meeting, but did not attend AM group activity. Pt has attended all meals at this time and has eaten approx 100% of all meals.
--- NOTE | 2016-10-19 15:51 | NUR ---
Allergist/Pediatric Pulmonologist/Counselor S:"Some of the voices I'm down with, but some of them aren't so nice." O: Patient denied any SI or HI, no anxiety and she rated her depression at a 1. Patient expressed she was experiencing telepathy and some not so friendly voices, that she was able to ignore. Patient slept for 6 hours. A: Patient was friendly and cooperative, and has been coloring for most of the day. She has been demanding of [facility], and has tried to triangulate staff. She is still internally occupied with the voices. P: Follow care plan and coordinate with outpatient providers.
--- NOTE | 2016-10-20 04:46 | NUR ---
warehouse worker 2nd shift [id number] Pt cooperative this shift and participated in wrap up group with peers. Pt took all HS meds also requesting Clonazepam 1mg and Tylenol 650mg. Pt did not have any behavioral issues or c/o "hearing witches." Pt is in bed at this time without s/sx of distress. Continue to monitor for mood changes, emotional well being, and q15min checks for safety.
[2016-10-20] MEDS: buPROPion XL 300 mg ER24 Tablet PO SCH (07:20)
[2016-10-20] MEDS: ARIPiprazole 10 mg Tablet PO SCH (07:21)
--- NOTE | 2016-10-20 11:29 | NUR ---
Assistant General Manager/Counselor S:"Witches re very tricky and are infiltrated into our society." O: Patient did not express any SI or HI, no anxiety or depression, and stated she is only experiencing telepathy, and that the voices are hardly there. A: Patient is being discharged at noon. She will return to her parent's house and from there she plans to enter the [facility] in [place]. She has appts. scheduled with her PCP Dr Fernandes, and a therapist through [facility]. P: Follow discharge plan.
[2016-10-20] MEDS ORDERED: ARIP10TA14 PO (12:02)
[2016-10-20] MEDS ORDERED: KLO1T PO (12:02)
[2016-10-20] MEDS ORDERED: BUPR300T51 PO (12:02)
[2016-10-20] MEDS ORDERED: LIT450 PO (12:02)
--- NOTE | 2016-10-20 12:04 | PCM.DIMED ---
Discharge Instructions Date of Service Oct 20, 2016 Dates of Hospitalization Oct 06, 2016 at 08:30 Discharge Diagnosis Discharge Diagnosis [place] AXIS I: 1. Schizoaffective disorder bipolar type versus schizophrenia chronic paranoid type. 2. Methamphetamine use disorder. 3. Alcohol use disorder. AXIS II: Deferred. AXIS III: None acute. AXIS IV: Moderate to severe. AXIS V: Global Assessment of Functioning 40 Diet Discharge Diet: No restrictions Activity Discharge Activity: No restrictions Call your provider Call your provider for: Fever or Chills Patient Instructions Patient Instructions I Strongly encouraged patient to follow up with outpatient care: 1-Recommended patient takes medication as prescribed and not alter this unless under the direct care of a provider. 2-Recommend client refrain from recreational drugs and alcohol while taking psychiatric medications. 3-Recommend client start a 12 step program to deal with issues of addiction. 4-Recommend patient attempt to find a therapist or group to deal with impulse control and interpersonal relationship conflicts Follow-up plan Recommend client apply for the [facility] rehabilitation program. Clinic to discharge home to her parents today. Client to follow up with [facility] mental health clinic for medication management and case management. Follow-up with PCP in: 2 weeks Drew Cool MD Oct 20, 2016 12:04
--- NOTE | 2016-10-20 12:41 | DIS ---
[address] [address] DISCHARGE SUMMARY PATIENT: MIL HOU : 1980 MR#: [id number] ADMIT: 10/06/2016 JOB ID: [id number] DIS: 10/20/2016 IDENTIFICATION: The patient is a 36-year-old, single, white female with a history of schizoaffective disorder. REASON FOR ADMISSION: Client detained on a 72-hour involuntary treatment hold for grave disability. SUMMARY OF PRESENT ILLNESS: Client was born and raised in the [facility]. She graduated from high school and has attended several years of college. She struggled with early-onset psychosis and has had multiple inpatient treatments for schizoaffective disorder. She reported her best response in the past has been to Abilify and lithium and was willing to restart these medications. The client was detained on September 26. She had recently been on what sounds like a manic episode where she left the [facility] and went to [place]. When she decompensates, she usually presents with psychosis, delusions and cognitive impairment. She had all of these symptoms, and in addition also went on a recent methamphetamine binge while traveling in [place]. She began to have worsening symptoms of hallucinations and was evaluated and transferred to our unit. HOSPITAL COURSE: Client was admitted to our unit and was provided with a high degree of safety through the structure and active adult engagement she received here. We had her participate in one-to-one unit and group activities focused on improving reality based thinking, coping skills and identifying stressors that may have led to recent decompensation. Client was restarted on medications Abilify, lithium, Wellbutrin and Klonopin. With the combination of therapy and medications, she made a gradual but steady improvement in thought organization and mood stability. Today she is requesting discharge and has been working with me on discharge planning for the past several days. I believe it is appropriate and that we have appropriate followup set up. MENTAL STATUS: Client neatly and stylishly dressed. Good eye contact. Calm, pleasant, cooperative. Mood euthymic. Affect congruent. Normal intensity. Thought process, client is able to relate a coherent history. No signs of psychosis. Thought content: Themes of future planning, how to take care of herself. Denied suicidal ideation or auditory hallucinations. Insight and judgment markedly improved. Impulse control highly contained. Reality testing intact. Competence to handle current stressors appears to be at baseline. DISCHARGE DIAGNOSES: AXIS I: 1. Schizoaffective disorder. 2. Methamphetamine abuse. 3. Alcohol use disorder. AXIS II: Deferred. AXIS III: None. AXIS IV: Moderate. AXIS V: Current Global Assessment of Functioning equal to 40. DISCHARGE PLAN: Client to follow up with the local mental health center in [place] for medication management and case management. Client to attend an appointment within the next two weeks. DISCHARGE MEDICATIONS: Abilify 20 daily, Wellbutrin XL 300 daily, Klonopin 1 h.s., lithium carbonate XR 450, two tablets h.s. ACTIVITY AND DIET: Recommend client refrain from recreational drugs and alcohol while taking psychiatric medications. Recommend she not be on recreational drugs while she is taking psychiatric medications nor change her medications unless under the supervision of a physician. CONDITION ON DISCHARGE: Good. PROGNOSIS: Good. cc: Treatment agency in [place]
--- NOTE | 2016-10-20 13:03 | NUR ---
Nursing Discharge Note: Patient cooperative with discharge process. Acknowledges understanding of d/c instructions and has a copy with them upon leaving unit at 1230. Belongings accounted for and with patient. Prescriptions faxed to patients pharmacy at [facility] in [facility]. Patient denies harmful thoughts and hallucinations at this time.
== END 2016-10-20 12:30 | disposition home or self-care (01) | DRG 885 ==
LOC: MHC 10-06 08:30
PROVIDERS: ADMIT Psychiatry & Neurology Psychiatry; ATTEND Psychiatry & Neurology Psychiatry
DX: F25.9 Schizoaffective disorder, unspecified (principal); R45.851 Suicidal ideations; F15.90 Other stimulant use, unspecified, uncomplicated; Z91.19 Patient's noncompliance with other medical treatment and regimen; Z81.8 Family history of other mental and behavioral disorders; Z72.89 Other problems related to lifestyle